=== PATIENT | male | born 1970 | race Caucasian/White ===

== ENCOUNTER 2017-01-06 10:05 | Inpatient (IN) | payer OTHER ==
[~2017-01-06] VITALS: Ht 182.9 cm; Wt 54.3 kg
[2017-01-06] MEDS ORDERED: ONDANSETRON 2 MG/ML (Z0FRAN) 2 ML VIAL IV ONE (10:40)
[2017-01-06] MEDS ORDERED: KETOROLAC 30 MG/ML (TORADOL) 1 ML VIAL IV ONE (10:40)
[2017-01-06 11:01] LABS: BASOPHILS % (AUTO) 0 % (0-2); EOSINOPHILS # (AUTO) 0.1 10^3uL; EOSINOPHILS % (AUTO) 0 % (0-4); LYMPHOCYTES # (AUTO) 1.4 X10^3; MEAN CORPUSCULAR HEMOGLOBIN 28.7 PG (26.0-34.0); MEAN CORPUSCULAR HGB CONC 33.6 g/dL (31.0-37.0); MEAN CORPUSCULAR VOLUME 85 FL (80-100); MEAN PLATELET VOLUME 9.3 FL (6.0-9.5); MONOCYTES # (AUTO) 1.4 X10^3; MONOCYTES % (AUTO) 10 % (3-11); NEUTROPHILS % (AUTO) 79 % (51-67); PLATELET COUNT 412 10^3uL (150-450); WHITE BLOOD COUNT 13.85 10^3uL (4.0-11.0)
[2017-01-06 12:17] LABS: CLARITY,URINE Clear; COLOR,URINE Yellow; GLUCOSE, URINE (UA) Negative (Negative); LEUKOCYTE ESTERASE ,URINE Negative (Negative); UROBILINOGEN,URINE 0.2 mg/dL (0.2-1.0)
[2017-01-06 12:19] LABS: ALBUMIN 3.6 g/dL (3.4-5.0); ANION GAP 13.7 MEQ/L (3-15); CALCULATED IONIZED CALCIUM 3.7 mg/dL (3.8-4.6); TOTAL PROTEIN 7.2 g/dL (6.4-8.5)
[2017-01-06 12:24] LABS: BILIRUBIN,URINE 1+ (Negative); URINE CENTRIFUGED VOLUME 12 mL
[2017-01-06 12:25] LABS: RBC,URINE 0-2 /HPF
--- NOTE | 2017-01-06 13:55 | NUR ---
Pt admitted to Rm 306 via w/c accompanied by MARCELINA Shin. Skin warm, dry, intact. Resprs nonlabored, even on RA. SL intact to L FA. Pt rates pain "6 to 10". See admission database for assessment info.
[2017-01-06] MEDS ORDERED: MAGNESIUM HYDROXIDE 80MG/ML (MILK OF MAGNESIA) 30 ML UDC PO PRN (14:00)
[2017-01-06] MEDS ORDERED: HYDROmorphone 1 MG/ML (DILAUDID) SYRINGE IV PRN (14:00)
[2017-01-06] MEDS ORDERED: CALCIUM CARBONATE CHEWABLE 300 MG (TUMS) TABLET PO PRN (14:00)
[2017-01-06] MEDS ORDERED: POLYETHYLENE GLYCOL 17 GM (MIRALAX) PACKET PO PRN (14:00)
[2017-01-06] MEDS ORDERED: ACETAMINOPHEN 325 MG TAB (TYLENOL) PO PRN (14:00)
[2017-01-06] MEDS ORDERED: DOCUSATE SODIUM 100 MG (COLACE) CAP PO PRN (14:00)
[2017-01-06] MEDS ORDERED: PROMETHAZINE HCL INJ 12.5 MG in SODIUM CHLORIDE 25 ML IV PRN (14:00)
[2017-01-06] MEDS ORDERED: MAG HYDROX/AL HYDROX/SIMETH 200-200-20/5 ML (MAG-AL PLUS) 30 ML UDC PO PRN (14:00)
[2017-01-06 14:02] VITALS: BP 108/74
[2017-01-06 14:14] VITALS: BP 108/74
[2017-01-06] MEDS ORDERED: NS FLUSH 10 ML PRN IV (14:35)
[2017-01-06] MEDS ORDERED: NS FLUSH 3 ML PRN IV (14:35)
[2017-01-06] MEDS: D5 1/2 NS W/KCL 20 MEQ/L 1,000 ML IV SCH ×2 (15:16→20:19)
[2017-01-06] MEDS: ONDANSETRON 2 MG/ML (Z0FRAN) 2 ML VIAL IV PRN ×2 (15:21→23:24)
--- NOTE | 2017-01-06 15:22 | NUR ---
IVF initiated. PRN Dilaudid given at this time for c/o pain rated "between 6 and 10". Denies other needs. Pt states he would like to sleep for a little bit since he hasn't slept since yesterday.
[2017-01-06 15:28] VITALS: BP 103/72
[2017-01-06] MEDS ORDERED: NICOTINE 21 MG (NICODERM) PATCH TD PRN (16:30)
[2017-01-06] MEDS: KETOROLAC 15 MG/ML (TORADOL) 1 ML VIAL IV SCH ×2 (18:42→23:24)
--- NOTE | 2017-01-06 19:35 | NUR ---
Pt is sitting up in bed visiting with sister. Alert and oriented x 4, Resp are even and nonlabored, LCTAB, HRRR, BS are hypoactive x 4 quadrants. IV is infusing with out difficulty, no redness, swelling, or s/s of infection noted at this time. Rates pain 8/10, will give pain med when family leaves, per pt request. Denies further needs at this time. Will continue to monitor.
[2017-01-06 19:45] VITALS: BP 102/63
[2017-01-06] MEDS: busPIRone 5 MG (BUSPAR) TAB PO SCH (20:18)
[2017-01-06] MEDS: NS FLUSH 3 ML DAILY IV SCH ×2 (20:19→23:24)
[2017-01-06] MEDS: HYDROmorphone 1 MG/ML (DILAUDID) SYRINGE IV PRN ×2 (20:19→23:24)
[2017-01-06 23:51] VITALS: BP 116/72
--- NOTE | 2017-01-07 04:03 | NUR ---
2020-Gave Dilaudid 1mg SIVP for increased pain, rates 9/10 to abdomen. Will continue to monitor. 2340-Pt is resting in bed, complains of pain to abdomen, rates 9/10, gave Dilaudid SIVP for discomfort. Will continue to monitor. 0400-Pt is resting in bed asleep, has been up ambulating in [place] twice tonight. Call light is in reach, will continue to monitor.
[2017-01-07 04:35] VITALS: BP 100/53
[2017-01-07] MEDS: D5 1/2 NS W/KCL 20 MEQ/L 1,000 ML IV SCH (05:39)
[2017-01-07] MEDS: KETOROLAC 15 MG/ML (TORADOL) 1 ML VIAL IV SCH (05:39)
[2017-01-07 06:06] LABS: MEAN CORPUSCULAR HEMOGLOBIN 28.3 PG (26.0-34.0); MEAN CORPUSCULAR HGB CONC 32.8 g/dL (31.0-37.0); MEAN CORPUSCULAR VOLUME 86 FL (80-100); MEAN PLATELET VOLUME 9.1 FL (6.0-9.5); PLATELET COUNT 321 10^3uL (150-450); WHITE BLOOD COUNT 4.95 10^3uL (4.0-11.0)
[2017-01-07 06:22] LABS: ALBUMIN 2.9 g/dL (3.4-5.0); ANION GAP 9.4 MEQ/L (3-15); CALCULATED IONIZED CALCIUM 3.9 mg/dL (3.8-4.6); TOTAL PROTEIN 5.9 g/dL (6.4-8.5)
[2017-01-07 06:37] LABS: BAND NEUTROPHILS % 6 % (0-6); EOSINOPHILS % 2 % (0-4); LYMPHOCYTES # 1.1 #; MONOCYTES # 0.7 #; MONOCYTES % 18 % (3-11); SEGMENTED NEUTROPHILS % 51 % (51-67); TOTAL CELLS COUNTED 100
[2017-01-07 06:38] LABS: RBC MORPH NORMAL (NORMAL)
[2017-01-07 07:43] VITALS: BP 96/55
[2017-01-07 08:03] LABS: ERYTHROCYTE SEDIMENTATION RT* 44 mm/hr (0-12)
--- NOTE | 2017-01-07 09:20 | NUR ---
MED REC COMPLETED-current med list obtained from Ext Med History application and patient interview. Conducted by Aide Larsen, PharmD Candidate 2017.
[2017-01-07] MEDS: ENOXAPARIN 40 MG/0.4 ML (LOVENOX) SYR SC SCH (09:37)
[2017-01-07] MEDS: metroNIDAZOLE 500 MG (FLAGYL) TABLET PO SCH ×3 (09:37→21:22)
[2017-01-07] MEDS: busPIRone 5 MG (BUSPAR) TAB PO SCH ×2 (09:37→21:22)
[2017-01-07] MEDS: HYDROmorphone 1 MG/ML (DILAUDID) SYRINGE IV PRN ×3 (09:37→23:58)
[2017-01-07] MEDS: PANTOPRAZOLE 40 MG (PROTONIX) TAB PO SCH (09:38)
[2017-01-07] MEDS: predniSONE 20 MG (DELTASONE) TABLET PO SCH (09:38)
[2017-01-07] MEDS: CIPROFLOXACIN (CIPRO) 500 MG TABLET PO SCH ×2 (09:38→21:22)
[2017-01-07] MEDS: NS FLUSH 3 ML DAILY IV SCH (09:39)
--- NOTE | 2017-01-07 09:40 | NUR ---
Pt awake/alert oriented x4. Requests pain meds for c/o abd pain rated 6/10. Dilaudid given as ordered.
[2017-01-07] MEDS: ACIDOPHILUS/LACTOBACILLUS SPOROGENES 1 TABLET PO SCH (09:42)
[2017-01-07 11:10] VITALS: BP 86/52
--- NOTE | 2017-01-07 11:17 | NUR ---
IV SL as ordered at this time.
--- NOTE | 2017-01-07 14:49 | NUR ---
Pt resting this afternoon. tolerated 25% CL diet
[2017-01-07 16:07] VITALS: BP 96/68
--- NOTE | 2017-01-07 17:59 | NUR ---
Pt given Miralax at this time. States he is passing gas per rectum but no BM's yet. Tolerating Clear liquid diet without nausea, slightly increased pain but not severe enough to cause him to quit eating- states "I just fill up fast."
[2017-01-07 20:10] VITALS: BP 125/73
[2017-01-08 00:03] VITALS: BP 110/70
[2017-01-08 04:24] VITALS: BP 89/56
[2017-01-08] MEDS: metroNIDAZOLE 500 MG (FLAGYL) TABLET PO SCH (06:14)
[2017-01-08] MEDS: PANTOPRAZOLE 40 MG (PROTONIX) TAB PO SCH (06:14)
--- NOTE | 2017-01-08 06:35 | NUR ---
Patient rests in bed throughout night. Has had some pain and required hydromorphone, but states this morning that he is feeling better. No needs at this time.
[2017-01-08 07:40] VITALS: BP 106/68
--- NOTE | 2017-01-08 08:23 | NUR ---
NUTRITION ASSESSMENT Level 1 Patient: Chidi Gonzalez Age/Sex: 46/M Date Screened: 01-08-17 Weight: 119.4#/54.3 kg Height: 72 inches Primary Diagnosis: ileus, abdominal pain Diet Order: low fiber Relevant labs: N/A Food allergies: N Nutrition Assessment Criteria Age over 80: N Body Mass Index (BMI) under 19: 6 points Admission Screening Indicates Risk? 3 points Moderate/High Risk Diagnosis: 3 points TPN or PPN: N NPO or clear liquid diet: N Serum Glucose <70 or >180: N/A Hgb A1c >6.7: N/A Total: 12 points Risk Screen: __ Patient at low nutritional risk based on available data; reevaluate in 5-7 days __ Patient at moderate nutritional risk based on available data; reevaluate in 3-5 days _X_ Patient at high nutritional risk; complete Nutrition Assessment within 48 hours of admission.
[2017-01-08] MEDS ORDERED: NICOTINE PATCH REMOVAL TOP SCH (08:59)
[2017-01-08] MEDS: ENOXAPARIN 40 MG/0.4 ML (LOVENOX) SYR SC SCH (09:00)
[2017-01-08] MEDS: ACIDOPHILUS/LACTOBACILLUS SPOROGENES 1 TABLET PO SCH (09:18)
[2017-01-08] MEDS: CIPROFLOXACIN (CIPRO) 500 MG TABLET PO SCH (09:19)
[2017-01-08] MEDS: busPIRone 5 MG (BUSPAR) TAB PO SCH (09:19)
[2017-01-08] MEDS: predniSONE 20 MG (DELTASONE) TABLET PO SCH (09:19)
--- NOTE | 2017-01-08 09:38 | NUR ---
NUTRITION ASSESSMENT Level II Patient: Chidi Gonzalez Age/Sex: 46/M Date Assessed: 01-08-17 ASSESSMENT Pertinent History: Patient admitted with ileus/abdominal pain and screened at high nutritional risk secondary to diagnosis and low BMI. PMHx includes Crohn's disease, anemia secondary to iron deficiency, B 12 deficiency, kidney stones and narcotic dependence. Although his BMI is low, his weight has been stable over the last few years. Last weight was documented at 115# in 2013. Pt. reports early satiety with meals. Meds/Nutrition: Protonix, Lactobacillus acidophilus, Prednisone Weight: 119.4#/54.3 kg Height: 72 inches Body Mass Index (BMI): 16.2 [place] Body Weight : 178#/80.9 kg % IBW: 67% GASTROINTESTINAL Appetite: poor, taking 25% Diet Order: low fiber Unintentional loss of >10 lbs. in 3 months: N Difficult to chew/swallow: N Diabetes: N Relevant Labs: N/A Calculations for Nutritional Assessment Estimated calorie needs: 28-30 kcals/kg = 1,510-1,620 kcals (plus 500 for weight gain) Estimated protein needs: 1.0-1.3 g/kg = 54-70 g./day DIAGNOSIS 1. Nutrition Diagnosis: Underweight related to impaired nutrient utilization as evidenced by BMI 16.2 with severe Crohn's disease and chronic low body weight. NUTRITIONAL INTERVENTION Goal: Patient will receive adequate nutrition to meet his needs. Plan: Recommend smaller, more frequent meals with an emphasis on protein sources. Pt. may benefit from a daily MVI, unless he takes Ensure regularly. MONITORING & EVALUATION _X_ Monitor patients menu selections _X_ Monitor patients food intake per nursing notes __ Monitor NPO/clear liquid days __ Monitor lab values __ Monitor I&O __ Other
--- NOTE | 2017-01-08 09:50 | NUR ---
IV dc'd for dismissal- tip intact, site without redness/swelling. Pressure held [id number] by patient- no bleeding from site. Dismissal instructions reviewed with patient. Verbalizes understanding. Copies signed- given to patient. Dressing then will dismiss to home. No driving restrictions- pt will drive self home.
--- NOTE | 2017-01-08 10:05 | NUR ---
Pt belongings from safe returned to patient. [employer]- patient signed return slip and copy given to him. Pt dismissed at this time via ambulation accompanied by Vira Martinez CNA.
== END 2017-01-08 10:07 | disposition home or self-care (01) | DRG 386 ==
LOC: ED 10:06 → OBSVTOIN 13:21 → UNDOADMOB 13:21 → MED/SURG 13:21
PROVIDERS: ADMIT Internal Medicine; ATTEND Internal Medicine
DX: K50.90 Crohn's disease, unspecified, without complications (principal); K56.7 Ileus, unspecified; E86.0 Dehydration; F41.9 Anxiety disorder, unspecified; E53.8 Deficiency of other specified B group vitamins; F17.210 Nicotine dependence, cigarettes, uncomplicated
CPT/HCPCS: 36415; 74000; 74022; 80053; 81003; 81015; 83690; 85025; 85652; 86140; 96361; 96374; 96375; 99283; 99284